=== PATIENT | male | born 1995 | race Caucasian/White ===

== ENCOUNTER 2018-05-15 13:14 | Emergency (ER) | payer OTHER ==
[2018-05-15] MEDS ORDERED: ONDANSETRON 4 MG (ODT) TAB ONE (13:56)
--- NOTE | 2018-05-15 14:12 | ER ---
Nurse's Notes [facility] Name: Silverio Alfaro Age: 23 yrs Sex: Male : 1995 Arrival Date: 05/15/2018 Time: 13:18 Bed 25 Private MD: None, None Diagnosis: Nausea and vomiting;Diarrhea, unspecified Presentation: 05/15 13:28 Presenting complaint: Patient states: n/v/d x 3 days. Transition of care: patient was sv not received from another setting of care. Onset of symptoms was May 12, 2018. Care prior to arrival: None. 13:28 Method Of Arrival: Ambulatory sv 13:28 Acuity: SAAD 3 sv 14:32 Risk Assessment: Do you want to hurt yourself or someone else? Patient reports no aj desire to harm self or others. Initial Sepsis Screen: Does the patient meet any 2 criteria? No. Patient's initial sepsis screen is negative. Does the patient have a suspected source of infection? No. Patient's initial sepsis screen is negative. Triage Assessment: 13:29 General: Appears in no apparent distress. comfortable, Behavior is calm, cooperative, sv appropriate for age. Neuro: Level of Consciousness is awake, alert, obeys commands, Oriented to person, place, time, situation, Gait is steady. Respiratory: Respiratory effort is even, unlabored, Respiratory pattern is regular, symmetrical. GI: Reports diarrhea, nausea, vomiting. Historical: - Allergies: 13:29 No Known Allergies; sv - PMHx: 13:29 None; sv - PSHx: 13:29 titanium plate placed in Left foot after previous foot fracture; sv - Immunization history:: Adult Immunizations up to date. - Social history:: Smoking status: Patient uses tobacco products, denies chronic smoking, but will smoke occasionally. - Ebola Screening: : No symptoms or risks identified at this time. Screenin:47 Abuse screen: Denies threats or abuse. Denies injuries from another. Nutritional aj screening: No deficits noted. Tuberculosis screening: No symptoms or risk factors identified. Fall Risk None identified. Assessment: 13:47 General: Appears in no apparent distress. comfortable, Behavior is calm, cooperative, aj appropriate for age. Pain: Denies pain. Neuro: Level of Consciousness is awake, alert, obeys commands, Oriented to person, place, time, situation, Appropriate for age. Respiratory: Airway is patent Respiratory effort is even, unlabored, Respiratory pattern is regular, symmetrical. GI: Reports diarrhea, nausea, vomiting. GI: Abdomen is flat, non-distended. Derm: Skin is intact, is healthy with good turgor, Skin is pink, warm \T\ dry. normal. Vital Signs: 13:29 BP 133 / 68; Pulse 69; Resp 18; Temp 97.4; Pulse Ox 100% ; Weight 117.93 kg; Height 6 sv ft. 3 in. (190.50 cm); Pain 6/10; 14:31 BP 134 / 61; Pulse 68; Resp 17; Pulse Ox 99% on R/A; aj 13:29 Body Mass Index 32.50 (117.93 kg, 190.50 cm) sv ED Course: 13:18 Patient arrived in ED. dl4 13:18 None, None is Private Physician. dl4 13:28 Triage completed. sv 13:29 Arm band placed on. sv 13:30 Lucy Humphrey FNP-C is [facility]. kb 13:30 Torin Garcia MD is Attending Physician. kb 13:39 Mena Lee, RN is Primary Nurse. aj 13:47 Patient has correct armband on for positive identification. Bed in low position. aj 13:47 No provider procedures requiring assistance completed. Patient did not have IV access aj during this emergency room visit. Administered Medications: 13:47 Drug: Zofran 4 mg Route: PO; aj 13:59 Follow up: Response: Nausea is decreased aj Outcome: 14:11 Discharge ordered by MD. kb 14:31 Discharged to home ambulatory. aj 14:31 Condition: good 14:31 Discharge instructions given to patient, Instructed on discharge instructions, follow up and referral plans. medication usage, Demonstrated understanding of instructions, follow-up care, medications, Prescriptions given X 1. 14:32 Patient left the ED. aj Signatures: Lucy Humphrey FNP-C FNP-Ckb Verde, Stephanie, RN RN sv Myers, Amanda, RN RN aj Luna, David dl4 Corrections: (The following items were deleted from the chart) 13:30 13:29 Pulse 69bpm; Resp 18bpm; Pulse Ox 100%; Temp 97.4F; 117.93 kg; Height 6 ft. 3 sv in.; BMI: 32.5; Pain 6/10; sv
--- NOTE | 2018-05-15 14:12 | EDPHYS ---
Physician Documentation [facility] Name: Silverio Alfaro Age: 23 yrs Sex: Male : 1995 Arrival Date: 05/15/2018 Time: 13:18 Bed 25 Private MD: None, None ED Physician Torin Garcia HPI: 05/15 14:08 This 23 yrs old Male presents to ER via Ambulatory with complaints of kb Nausea/Vomiting/Diarrhea. 14:08 The patient presents to the emergency department with nausea, vomiting, diarrhea. kb Onset: The symptoms/episode began/occurred 3 day(s) ago. Possible causes: unknown. The symptoms are aggravated by nothing. The symptoms are alleviated by nothing. Associated signs and symptoms: Pertinent positives: diarrhea, nausea, vomiting, Pertinent negatives: abdominal pain, anorexia, belching, constipation, dysuria, fever, flatulence, GI bleeding, hematuria. Severity of symptoms: At their worst the symptoms were moderate in the emergency department the symptoms are unchanged. The patient has not experienced similar symptoms in the past. The patient has not recently seen a physician. Pt reports n/v/d for 3 days. States "It's no big deal, nothing serious. I just threw up at work today so they made me come in to get checked out." . Historical: - Allergies: 13:29 No Known Allergies; sv - PMHx: 13:29 None; sv - PSHx: 13:29 titanium plate placed in Left foot after previous foot fracture; sv - Immunization history:: Adult Immunizations up to date. - Social history:: Smoking status: Patient uses tobacco products, denies chronic smoking, but will smoke occasionally. - Ebola Screening: : No symptoms or risks identified at this time. ROS: 14:10 Constitutional: Negative for fever, chills, and weight loss, Cardiovascular: Negative kb for chest pain, palpitations, and edema, Respiratory: Negative for shortness of breath, cough, wheezing, and pleuritic chest pain, Back: Negative for injury and pain, : Negative for injury, bleeding, discharge, and swelling, MS/Extremity: Negative for injury and deformity, Skin: Negative for injury, rash, and discoloration, Neuro: Negative for headache, weakness, numbness, tingling, and seizure. 14:10 Abdomen/GI: Positive for nausea, vomiting, and diarrhea, Negative for abdominal pain, constipation, abdominal cramps, abdominal distension, anorexia. Exam: 14:10 Constitutional: This is a well developed, well nourished patient who is awake, alert, kb and in no acute distress. Head/Face: Normocephalic, atraumatic. Chest/axilla: Normal chest wall appearance and motion. Nontender with no deformity. No lesions are appreciated. Cardiovascular: Regular rate and rhythm with a normal S1 and S2. No gallops, murmurs, or rubs. Normal PMI, no JVD. No pulse deficits. Respiratory: Lungs have equal breath sounds bilaterally, clear to auscultation and percussion. No rales, rhonchi or wheezes noted. No increased work of breathing, no retractions or nasal flaring. Abdomen/GI: Soft, non-tender, with normal bowel sounds. No distension or tympany. No guarding or rebound. No evidence of tenderness throughout. Skin: Warm, dry with normal turgor. Normal color with no rashes, no lesions, and no evidence of cellulitis. MS/ Extremity: Pulses equal, no cyanosis. Neurovascular intact. Full, normal range of motion. Neuro: Awake and alert, GCS 15, oriented to person, place, time, and situation. Cranial nerves II-XII grossly intact. Motor strength 5/5 in all extremities. Sensory grossly intact. Cerebellar exam normal. Normal gait. Vital Signs: 13:29 BP 133 / 68; Pulse 69; Resp 18; Temp 97.4; Pulse Ox 100% ; Weight 117.93 kg; Height 6 sv ft. 3 in. (190.50 cm); Pain 6/10; 14:31 BP 134 / 61; Pulse 68; Resp 17; Pulse Ox 99% on R/A; aj 13:29 Body Mass Index 32.50 (117.93 kg, 190.50 cm) sv MDM: 13:31 Patient medically screened. kb 14:07 Data reviewed: vital signs, nurses notes. Data interpreted: Pulse oximetry: on room air kb is 100 %. Interpretation: normal. Counseling: I had a detailed discussion with the patient and/or guardian regarding: the historical points, exam findings, and any diagnostic results supporting the discharge/admit diagnosis, the need for outpatient follow up, a family practitioner, to return to the emergency department if symptoms worsen or persist or if there are any questions or concerns that arise at home. 14:10 ED course: Pt does not want blood work done, doesn't think it is necessary. kb 05/15 13:36 Order name: PO challenge; Complete Time: 13:59 kb Administered Medications: 13:47 Drug: Zofran 4 mg Route: PO; aj 13:59 Follow up: Response: Nausea is decreased aj Disposition: 15:19 Co-signature as Attending Physician, Torin Garcia MD I agree with the assessment and [facility] plan of care. Disposition: 05/15/18 14:11 Discharged to Home. Impression: Nausea and vomiting, Diarrhea, unspecified. - Condition is Stable. - Discharge Instructions: Food Choices to Help Relieve Diarrhea, Adult, Viral Gastroenteritis, Adult, [id number], Nausea and Vomiting, Adult, [id number], Diarrhea, Adult, [id number]. - Prescriptions for Zofran 4 mg Oral Tablet - take 1 tablet by ORAL route every 6 hours As needed; 20 tablet. - Medication Reconciliation Form, Thank You Letter, Antibiotic Education, Prescription Opioid Use form. - Work release form (05/15/18 16:08). sv - Follow up: Emergency Department; When: As needed; Reason: Worsening of condition. Follow up: Private Physician; When: 2 - 3 days; Reason: Recheck today's complaints, Continuance of care, Re-evaluation by your physician. Signatures: Lucy Humphrey, JORGE-C INSEAMER-Dory Madrid RN RN sv Myers, Amanda, RN RN aj Anderson, Corey, MD MD [facility] Corrections: (The following items were deleted from the chart) 14:32 14:11 05/15/2018 14:11 Discharged to Home. Impression: Nausea and vomiting; Diarrhea, aj unspecified. Condition is Stable. Forms are Medication Reconciliation Form, Thank You Letter, Antibiotic Education, Prescription Opioid Use. Follow up: Emergency Department; When: As needed; Reason: Worsening of condition. Follow up: Private Physician; When: 2 - 3 days; Reason: Recheck today's complaints, Continuance of care, Re-evaluation by your physician. kb
== END 2018-05-15 14:32 | disposition home or self-care (01) ==
LOC: ER 13:14
DX: R11.2 Nausea with vomiting, unspecified (principal); R19.7 Diarrhea, unspecified
CPT/HCPCS: 99283

== ENCOUNTER 2020-09-17 03:11 | Emergency (ER) | payer BC, OTHER ==
[2020-09-17 03:42] LABS: Urine Blood Negative (Negative); Urine Glucose Negative (Negative); Urine Protein Negative (Negative); Urine Specific Gravity 1.025 (1.005-1.030); Urine pH 5.5 (5.0-7.0)
[2020-09-17 04:07] LABS: Absolute Lymphocytes (CBC) 2.1 K/uL (0.7-4.9); Basophils % 0.2 % (0-1.3); Hematocrit 44.6 % (39.6-49.0); Lymphocytes % 16.6 % (15.3-44.8); MPV 10.4 fL (7.6-11.3); RBC Red Blood Cell Count 5.11 M/uL (4.33-5.43)
[2020-09-17 04:10] LABS: Protime INR 1.14
[2020-09-17] MEDS ORDERED: NA CHLORIDE 0.9% 1,000 ML ONE (04:10)
[2020-09-17 04:29] LABS: Barbiturates NEGATIVE (NEGATIVE); Benzodiazepines NEGATIVE (NEGATIVE); Cocaine NEGATIVE (NEGATIVE); METHAMPHETAM NEGATIVE (NEGATIVE); Methadone NEGATIVE (NEGATIVE); Opiates NEGATIVE (NEGATIVE); Phencyclidine NEGATIVE (NEGATIVE); THC Cannibis POSITIVE (NEGATIVE)
[2020-09-17 04:29] LABS: ALT/SGPT 30 U/L (12-78); AST/SGOT 23 U/L (15-37); Albumin 4.5 g/dL (3.4-5.0); Alkaline Phosphatase 72 U/L (45-117); BUN Blood Urea Nitrogen 14 mg/dL (7-18); Bicarbonate 26 mmol/L (21-32); Bilirubin Direct 0.1 mg/dL (0-0.2); Bilirubin Total 0.4 mg/dL (0.2-1.0); Glucose Level 98 mg/dL (74-106); Potassium 3.5 mmol/L (3.5-5.1); Protein, Total 8.1 g/dL (6.4-8.2); Sodium Level 143 mmol/L (136-145)
[2020-09-17] MEDS ORDERED: D50W 25 GM/50 ML SYRINGE IV ONE (05:45)
[2020-09-17] MEDS ORDERED: D5 0.45 NS 1,000 ML IV ONE (05:45)
--- NOTE | 2020-09-17 06:56 | ER ---
Nurse's Notes [facility] Name: Silverio Alfaro Age: 25 yrs Sex: Male : 1995 Arrival Date: 09/17/2020 Time: 03:12 Bed 3 Private MD: Diagnosis: Alcohol abuse with intoxication;Adverse effect of marijuana use Presentation: 09/17 03:15 Chief complaint: Parent and/or Guardian states: He was at a friends house tonight jb4 drinking. They said he had a lot to drink on an empty stomach. Coronavirus screen: Client denies travel out of the [place] in the last 14 days. At this time, the client does not indicate any symptoms associated with coronavirus-19. Ebola Screen: No symptoms or risks identified at this time. 03:15 Method Of Arrival: Wheelchair jb4 03:15 Initial Sepsis Screen: Does the patient meet any 2 criteria? No. Patient's initial jb4 sepsis screen is negative. Does the patient have a suspected source of infection? No. Patient's initial sepsis screen is negative. Risk Assessment: Do you want to hurt yourself or someone else? Patient reports no desire to harm self or others. Onset of symptoms was September 17, 2020. Transition of care: patient was not received from another setting of care. 03:15 Acuity: SAAD 1 jb4 Historical: - Allergies: 03:40 No Known Allergies; jb4 - Home Meds: 03:40 None [Active]; jb4 - PMHx: 03:40 None; jb4 - PSHx: 03:40 None; jb4 - Immunization history:: Adult Immunizations unknown. - Social history:: Smoking status: unknown Patient uses alcohol, street drugs, marijuana. - Family history:: not pertinent. - Hospitalizations: : No recent hospitalization is reported. - History obtained from: mother. Screenin:30 Abuse screen: Denies threats or abuse. Nutritional screening: No deficits noted. jb4 Tuberculosis screening: No symptoms or risk factors identified. Fall Risk Gait- Impaired (20 pts.). Mental Status- Overestimates/Forgets Limitations (15 pts.). Total Christiansen Fall Scale indicates High Risk Score (45 or more points). Fall prevention measures have been instituted. Side Rails Up X 2 Placed Close to Nursing Station Frequent Obs/Assessments Occuring. Assessment: 03:15 General: Appears distressed, ill, obese, Behavior is uncooperative, Smells of alcohol, jb4 Smoke. Pain: Unable to use pain scale. FLACC scale score is 0 out of 10. Neuro: Level of Consciousness is lethargic, Oriented to person, place, time, situation. Cardiovascular: Skin is diaphoretic and warm. Respiratory: Airway is compromised Respiratory effort is gasping, weak, Respiratory pattern is symmetrical, periods of apnea noted with periods of regular breathing. GI: No signs and/or symptoms were reported involving the gastrointestinal system. : No signs and/or symptoms were reported regarding the genitourinary system. EENT: No signs and/or symptoms were reported regarding the EENT system. Derm: Skin is intact, Skin is diaphoretic, Skin is normal, Skin temperature is warm. Musculoskeletal: Circulation, motion, and sensation intact. Range of motion: intact in all extremities. 03:30 Reassessment: Nasal trumpet inserted to left nare per providers orders. jb4 03:45 Reassessment: Pt's skin is now warm and dry. Respirations are even and unlabored. No jb4 s/s of distress noted. 04:45 Reassessment: Patient and/or family updated on plan of care and expected duration. Pain jb4 level reassessed. Pt awakens more easily, remain lethargic. Respirations continue to be even and unlabored with no s/s of pain or distress noted. 05:15 Reassessment: Pt is now awake, alert and oriented x4. Responds spontaneously to voice jb4 and other sounds. Is requesting to have nasal trumpet removed. Provider notified, Provider okayed nasal trumpet to be removed. 07:20 Reassessment: pt laying in bed with eyes closed, respirations even and unlabored, will jl7 be discharged once his mom arrives. 08:00 Reassessment: Pt's mom here to take pt home, woke pt up, removed Hdz and discharged jl7 pt home via wheelchair with his mom. Vital Signs: 03:15 BP 112 / 58; Pulse 60; Resp 13; Temp 96.7(O); Pulse Ox 98% on R/A; Weight 117.93 kg jb4 (R); Height 6 ft. 1 in. (185.42 cm); Pain 0/10; 05:00 BP 154 / 97; Pulse 58; Resp 19; Temp 98.5(C); Pulse Ox 100% on R/A; jb4 05:30 BP 153 / 99; Pulse 63; Resp 23; Temp 98.9(C); Pulse Ox 100% on R/A; jb4 07:20 BP 135 / 58; Pulse 69; Resp 19 S; Temp 99.1(C); Pulse Ox 98% on R/A; jl7 08:00 BP 137 / 76; Pulse 73; Resp 15 S; Temp 98.9(C); Pulse Ox 99% on R/A; jl7 03:15 Body Mass Index 34.30 (117.93 kg, 185.42 cm) jb4 ED Course: 03:12 Patient arrived in ED. am4 03:13 Rosalio Leavitt MD is Attending Physician. rn 03:15 Initial lab(s) drawn, by me, sent to lab. Inserted saline lock: 18 gauge in right jb4 antecubital area, using aseptic technique. Blood collected. 03:25 EKG done. jb4 03:30 Patient has correct armband on for positive identification. Placed in gown. Bed in low jb4 position. Call light in reach. Side rails up X 1. metal sorter on. Pulse ox on. NIBP on. 03:30 Hdz cath inserted, using sterile technique, 16 Fr., by ne, balloon inflated, to jb4 gravity drainage, urine specimen collected. returned mana urine. Patient tolerated well. Patient maintains SpO2 saturation greater than 95% on room air. O2 via Nasal trumpet inserted per Dr. Laevitt. 03:39 Triage completed. jb4 03:40 Arm band placed on right wrist. jb4 03:48 Grant Berry, RN is Primary Nurse. jb4 07:37 Primary Nurse role handed off by Grant Berry, RN bd 08:00 No provider procedures requiring assistance completed. Hdz cath removed intact, jl7 balloon deflated. IV discontinued, intact, bleeding controlled, No redness/swelling at site. Pressure dressing applied. Administered Medications: 04:14 Drug: NS 0.9% 1000 ml Route: IV; Rate: 1000 ml; Site: left antecubital; jb4 07:00 Follow up: IV Intake: 1000ml jl7 05:30 Drug: D5-1/2 NS 1000 ml Route: IV; Rate: 150 ml/hr; Site: left antecubital; jb4 08:00 Follow up: IV Status: Completed infusion; IV Intake: 350ml jl7 05:30 Drug: D50W 50 ml Route: IVP; Site: left antecubital; jb4 Intake: 07:00 IV: 1000ml; Total: 1000ml. jl7 08:00 IV: 350ml; Total: 1350ml. jl7 Outcome: 06:55 Discharge ordered by . rn 08:00 Discharged to home via wheelchair, with family. jl7 08:00 Condition: stable 08:00 Discharge instructions given to patient, Instructed on discharge instructions, follow up and referral plans. Demonstrated understanding of instructions, follow-up care. 09:42 Patient left the ED. jl7 Signatures: Madhavi Mcdonald Brenda, RN RN Rosalio Stearns MD MD rn Bryson, James, RN RN jb4 Gene Pyle RN RN Ayse Bowman am4 Corrections: (The following items were deleted from the chart) 03:18 03:18 Chief complaint: bb radha 05:05 03:15 BP 112 / 58; Pulse 60bpm; Resp 13bpm; Pulse Ox 98% RA; Temp 96.7F Oral; jb4 jb4
--- NOTE | 2020-09-17 06:56 | EDPHYS ---
Physician Documentation [facility] Name: Silverio Alfaro Age: 25 yrs Sex: Male : 1995 Arrival Date: 09/17/2020 Time: 03:12 Bed 3 Private MD: ED Physician Rosalio Leavitt HPI: 09/17 05:11 This 25 yrs old Male presents to ER via Wheelchair with complaints of rn Unresponsive. 05:11 The patient presents with decreased responsiveness. Onset: The symptoms/episode rn began/occurred just prior to arrival. Possible causes: drug use, alcohol. Associated signs and symptoms: Pertinent negatives: seizure. Current symptoms: In the emergency department the patient's symptoms are unchanged from the initial presentation. The patient has not experienced similar symptoms in the past. The patient has not recently seen a physician. Mother brought patient in for eval, states unresponsive, was at a house libertarian and admitted to drinking a lot. Unknown if any drug use.. Historical: - Allergies: 03:40 No Known Allergies; jb4 - Home Meds: 03:40 None [Active]; jb4 - PMHx: 03:40 None; jb4 - PSHx: 03:40 None; jb4 - Immunization history:: Adult Immunizations unknown. - Social history:: Smoking status: unknown Patient uses alcohol, street drugs, marijuana. - Family history:: not pertinent. - Hospitalizations: : No recent hospitalization is reported. - History obtained from: mother. ROS: 05:11 Unable to obtain ROS due to altered mental status. rn Exam: 05:11 Constitutional: This is a well developed, well nourished patient who is somnolent, rn drooling Head/Face: Normocephalic, atraumatic. Eyes: Pupils equal round and reactive to light, extra-ocular motions intact. Periorbital areas with no swelling, redness, or edema. ENT: dry MM, no signs of tongue biting or trauma. Cardiovascular: Regular rate and rhythm. No pulse deficits. Respiratory: No increased work of breathing, no retractions or nasal flaring. Abdomen/GI: soft, non-tender Skin: Warm, dry MS/ Extremity: Pulses equal, no cyanosis. Neuro: Somnolent, awakens with jaw thrust Vital Signs: 03:15 BP 112 / 58; Pulse 60; Resp 13; Temp 96.7(O); Pulse Ox 98% on R/A; Weight 117.93 kg jb4 (R); Height 6 ft. 1 in. (185.42 cm); Pain 0/10; 05:00 BP 154 / 97; Pulse 58; Resp 19; Temp 98.5(C); Pulse Ox 100% on R/A; jb4 05:30 BP 153 / 99; Pulse 63; Resp 23; Temp 98.9(C); Pulse Ox 100% on R/A; jb4 07:20 BP 135 / 58; Pulse 69; Resp 19 S; Temp 99.1(C); Pulse Ox 98% on R/A; jl7 08:00 BP 137 / 76; Pulse 73; Resp 15 S; Temp 98.9(C); Pulse Ox 99% on R/A; jl7 03:15 Body Mass Index 34.30 (117.93 kg, 185.42 cm) jb4 MDM: 03:13 Patient medically screened. rn 06:53 Differential Diagnosis: alcohol intoxication, hypoglycemia, overdose, volume depletion. rn Data reviewed: vital signs, nurses notes, lab test result(s), and as a result, I will discharge patient. Counseling: I had a detailed discussion with the patient and/or guardian regarding: the historical points, exam findings, and any diagnostic results supporting the discharge/admit diagnosis, lab results, the need for outpatient follow up, to return to the emergency department if symptoms worsen or persist or if there are any questions or concerns that arise at home. Response to treatment: the patient's symptoms have markedly improved after treatment, and as a result, I will discharge patient. ED course: Much more alert, awakens to voice now, sits up, keeps full conversation, stable vitals. Will dc home when mother comes back to take him home and continue to sober up. Counseled patient about drug use and ETOH intoxication and dangers of both.. 09/17 03:14 Order name: Ptt, Activated; Complete Time: 04:39 rn 09/17 03:14 Order name: PT-INR; Complete Time: 04:39 rn 09/17 03:14 Order name: Acetaminophen; Complete Time: 04:39 rn 09/17 03:14 Order name: Basic Metabolic Panel; Complete Time: 04:39 rn 06/02 03:14 Order name: CBC with Diff; Complete Time: 04:39 rn 09/17 03:14 Order name: ETOH Level; Complete Time: 04:39 rn 09/17 03:14 Order name: Hepatic Function; Complete Time: 04:39 rn 09/17 03:14 Order name: Salicylate; Complete Time: 04:39 rn 09/17 03:14 Order name: Urine Drug Screen; Complete Time: 04:39 rn 02 03:33 Order name: Glucose, Ancillary Testing; Complete Time: 04:39 EDMS 02 03:43 Order name: Urine Dipstick-Ancillary; Complete Time: 04:39 EDMS 09/17 05:34 Order name: Glucose, Ancillary Testing; Complete Time: 05:36 EDMS 09/17 03:14 Order name: EKG; Complete Time: 03:15 rn 09/17 03:14 Order name: EKG - Nurse/Tech; Complete Time: 03:36 rn 09/17 03:14 Order name: IV Saline Lock; Complete Time: 03:36 rn 09/17 03:14 Order name: Labs collected and sent; Complete Time: 03:36 rn 09/17 03:14 Order name: Urine Dipstick-Ancillary (obtain specimen); Complete Time: 03:36 rn 09/17 03:14 Order name: Cath; Complete Time: 03:36 rn Administered Medications: 04:14 Drug: NS 0.9% 1000 ml Route: IV; Rate: 1000 ml; Site: left antecubital; 4 07:00 Follow up: IV Intake: 1000ml jl7 05:30 Drug: D5-1/2 NS 1000 ml Route: IV; Rate: 150 ml/hr; Site: left antecubital; 4 08:00 Follow up: IV Status: Completed infusion; IV Intake: 350ml jl7 05:30 Drug: D50W 50 ml Route: IVP; Site: left antecubital; 4 Disposition: 09/17/20 06:55 Discharged to Home. Impression: Alcohol abuse with intoxication, Adverse effect of marijuana use. - Condition is Stable. - Discharge Instructions: Alcohol Intoxication. - Medication Reconciliation Form, Thank You Letter, Antibiotic Education, Prescription Opioid Use form. - Work release form (09/18/20 00:48). iw - Follow up: Private Physician; When: As needed; Reason: Recheck today's complaints, Re-evaluation by your physician. - Problem is new. - Symptoms have improved. Signatures: Dispatcher [employer] EDMS Rosalio Leavitt MD MD rn Bryson, James, RN RN jb4 Gene Pyle RN RN jl7 Winifred Esteban RN iw Corrections: (The following items were deleted from the chart) 09:42 06:55 09/17/2020 06:55 Discharged to Home. Impression: Alcohol abuse with intoxication; jl7 Adverse effect of marijuana use. Condition is Stable. Forms are Medication Reconciliation Form, Thank You Letter, Antibiotic Education, Prescription Opioid Use. Follow up: Private Physician; When: As needed; Reason: Recheck today's complaints, Re-evaluation by your physician. Problem is new. Symptoms have improved. rn
[2020-09-17 09:57] VITALS: BP 137/76; TEMP 98.9; O2SAT 99
--- NOTE | 2020-09-17 11:54 | EKG ---
Test Date: 2020-09-17 Test Time: 03:23:17 Associate Financial Representative: AYAKA MEASUREMENT RESULTS: Intervals: Rate: 62 NJ: 164 QRSD: 100 QT: 428 QTc: 434 Bodega: P: 48 NJ: 164 QRS: 49 T: 67 INTERPRETIVE STATEMENTS: Normal sinus rhythm Normal ECG No previous ECG available for comparison Electronically Signed On 09-17-20 11:53:30 CDT by Ilir Barnes
== END 2020-09-17 09:42 | disposition home or self-care (01) ==
LOC: ER 03:11
DX: F10.129 Alcohol abuse with intoxication, unspecified (principal); T40.7X5A Adverse effect of cannabis (derivatives), initial encounter
CPT/HCPCS: 96361; 93005; 85025; 80048; 36415; 80320; 80329 ×2; 85610; 82947 ×2; 80076; 80307 ×8; 85730; 81003; 51702; 96374; 99291; 99292; J7799; J7030

== ENCOUNTER 2021-11-10 20:49 | Emergency (ER) | payer BC ==
--- NOTE | 2021-11-11 01:14 | ER ---
Nurse's Notes [facility] Name: Silverio Alfaro Age: 26 yrs Sex: Male : 1995 Arrival Date: 11/10/2021 Time: 20:57 Bed 11 Private MD: Diagnosis: Viral infection, unspecified;Nausea with vomiting, unspecified-Resolved Presentation: 11/10 21:03 Chief complaint: N/V/D yesterday after lunch, sore throat and headache today. hb Coronavirus screen: Client presents with at least one sign or symptom that may indicate coronavirus-19. Standard/surgical mask placed on the client. Provider contacted for isolation considerations. Ebola Screen: No symptoms or risks identified at this time. Initial Sepsis Screen: Does the patient meet any 2 criteria? No. Patient's initial sepsis screen is negative. Does the patient have a suspected source of infection? No. Patient's initial sepsis screen is negative. Risk Assessment: Do you want to hurt yourself or someone else? Patient reports no desire to harm self or others. Onset of symptoms was November 09, 2021. 21:03 Method Of Arrival: Ambulatory 21:03 Acuity: SAAD 3 hb Triage Assessment: 21:05 General: Appears in no apparent distress. Behavior is calm, cooperative. Pain: Pain hb currently is 4 out of 10 on a pain scale. Neuro: Level of Consciousness is awake, alert, obeys commands, Oriented to person, place, time, situation. Cardiovascular: Patient's skin is warm and dry. Respiratory: Respiratory effort is even, unlabored. Historical: - Allergies: 21:05 No Known Allergies; hb - Home Meds: 21:05 None [Active]; hb - PMHx: 21:05 None; hb - PSHx: 21:05 Foot - Left; Hip - left; hb - Immunization history:: Adult Immunizations up to date. - Social history:: Smoking status: Patient reports the use of cigarette tobacco products, denies chronic smoking, but will smoke occasionally. Screenin:27 Abuse screen: Denies threats or abuse. Nutritional screening: No deficits noted. [facility] Tuberculosis screening: No symptoms or risk factors identified. Fall Risk None identified. Assessment: 23:27 Reassessment: No changes from previously documented assessment. GI: Reports nausea. [facility] Vital Signs: 21:03 BP 135 / 65; Pulse 63; Resp 16; Temp 98.9; Pulse Ox 100% on R/A; Weight 108.86 kg; hb Height 6 ft. 3 in. (190.50 cm); Pain 4/10; 23:40 BP 112 / 71; Pulse 46; Resp 20; Pulse Ox 100% on R/A; 1 11/11 01:20 BP 122 / 76; Pulse 46; Resp 20; Pulse Ox 100% on R/A; 1 11/10 21:03 Body Mass Index 30.00 (108.86 kg, 190.50 cm) hb ED Course: 11/10 20:57 Patient arrived in ED. 2 21:05 Triage completed. 21:05 Arm band placed on. 23:14 Gwen Carr, RN is Primary Nurse. [facility] 23:27 Primary Nurse role handed off by Gwen Carr, K[facility] 23:27 Madhavi Milligan, RN is Primary Nurse. [facility] 23:27 Patient has correct armband on for positive identification. [facility] 23:27 No provider procedures requiring assistance completed. Patient did not have IV access [facility] during this emergency room visit. 23:37 Terrance Guardado MD is Attending Physician. kdr 23:40 No apparent distress. Resting quietly. Awaiting ED provider evaluation. [facility] 11/11 00:24 No apparent distress. Resting quietly. Awaiting disposition. [facility] Administered Medications: No medications were administered Medication: 11/10 23:27 VIS not applicable for this client. [facility] Outcome: 11/11 01:13 Discharge ordered by . kdr 01:20 Discharged to home ambulatory. [facility] 01:20 Condition: good 01:20 Discharge instructions given to patient, Instructed on discharge instructions, follow up and referral plans. medication usage, Demonstrated understanding of instructions, follow-up care, medications. 01:20 Patient left the ED. [facility] Signatures: Terrance Guardado MD MD kdr Baxter, Heather, RN RN Glenys Block [facility] Gwen Carr RN RN 3 Madhavi Milligan RN RN [facility]
--- NOTE | 2021-11-11 01:14 | EDPHYS ---
Physician Documentation [facility] Name: Silverio Alfaro Age: 26 yrs Sex: Male : 1995 Arrival Date: 11/10/2021 Time: 20:57 Bed 11 Private MD: ED Physician Terrance Guardado HPI: 11/11 02:50 This 26 yrs old Male presents to ER via Ambulatory with complaints of kdr Nausea/Vomiting. 02:50 The patient presents to the emergency department with nausea, that is mild, vomiting, kdr that is intermittent, abdominal pain, of the abdomen diffusely, described as achy, crampy. Onset: The symptoms/episode began/occurred suddenly, last night. Possible causes: unknown. The symptoms are aggravated by nothing. The symptoms are alleviated by nothing. Associated signs and symptoms: Pertinent positives: abdominal pain, nausea, vomiting. Severity of symptoms: At their worst the symptoms were mild moderate just prior to arrival, in the emergency department the symptoms have resolved. The patient has not experienced similar symptoms in the past. The patient has not recently seen a physician. Sent by his workplace for medical clearance and evaluation. Historical: - Allergies: 11/10 21:05 No Known Allergies; hb - Home Meds: 21:05 None [Active]; hb - PMHx: 21:05 None; hb - PSHx: 21:05 Foot - Left; Hip - left; hb - Immunization history:: Adult Immunizations up to date. - Social history:: Smoking status: Patient reports the use of cigarette tobacco products, denies chronic smoking, but will smoke occasionally. ROS: 11/11 02:50 Constitutional: Negative for fever, chills, and weight loss, Eyes: Negative for injury, kdr pain, redness, and discharge, ENT: Negative for injury, pain, and discharge, Neck: Negative for injury, pain, and swelling, Cardiovascular: Negative for chest pain, palpitations, and edema, Respiratory: Negative for shortness of breath, cough, wheezing, and pleuritic chest pain, Back: Negative for injury and pain, : Negative for injury, bleeding, discharge, and swelling, MS/Extremity: Negative for injury and deformity, Skin: Negative for injury, rash, and discoloration, Neuro: Negative for headache, weakness, numbness, tingling, and seizure activity. Psych: Negative for depression, anxiety, suicide ideation, homicidal ideation, and hallucinations, Allergy/Immunology: Negative for hives, rash, and allergies, Endocrine: Negative for neck swelling, polydipsia, polyuria, polyphagia, and marked weight changes, Hematologic/Lymphatic: Negative for swollen nodes, abnormal bleeding, and unusual bruising. Abdomen/GI: Positive for abdominal pain, nausea, vomiting, and diarrhea, abdominal cramps. Exam: 02:50 Constitutional: This is a well developed, well nourished patient who is awake, alert, kdr and in no acute distress. Head/Face: Normocephalic, atraumatic. Eyes: Pupils equal round and reactive to light, extra-ocular motions intact. Lids and lashes normal. Conjunctiva and sclera are non-icteric and not injected. Cornea within normal limits. Periorbital areas with no swelling, redness, or edema. Neck: Trachea midline, no thyromegaly or masses palpated, and no cervical lymphadenopathy. Supple, full range of motion without nuchal rigidity, or vertebral point tenderness. No Meningismus. Chest/axilla: Normal chest wall appearance and motion. Nontender with no deformity. No lesions are appreciated. Cardiovascular: Regular rate and rhythm with a normal S1 and S2. No gallops, murmurs, or rubs. Normal PMI, no JVD. No pulse deficits. Respiratory: Lungs have equal breath sounds bilaterally, clear to auscultation and percussion. No rales, rhonchi or wheezes noted. No increased work of breathing, no retractions or nasal flaring. Abdomen/GI: Soft, non-tender, with normal bowel sounds. No distension or tympany. No guarding or rebound. No evidence of tenderness throughout. Back: No spinal tenderness. No costovertebral tenderness. Full range of motion. Skin: Warm, dry with normal turgor. Normal color with no rashes, no lesions, and no evidence of cellulitis. MS/ Extremity: Pulses equal, no cyanosis. Neurovascular intact. Full, normal range of motion. Neuro: Awake and alert, GCS 15, oriented to person, place, time, and situation. Cranial nerves II-XII grossly intact. Motor strength 5/5 in all extremities. Sensory grossly intact. Cerebellar exam normal. Normal gait. Psych: Awake, alert, with orientation to person, place and time. Behavior, mood, and affect are within normal limits. Vital Signs: 11/10 21:03 BP 135 / 65; Pulse 63; Resp 16; Temp 98.9; Pulse Ox 100% on R/A; Weight 108.86 kg; hb Height 6 ft. 3 in. (190.50 cm); Pain 4/10; 23:40 BP 112 / 71; Pulse 46; Resp 20; Pulse Ox 100% on R/A; 1 11/11 01:20 BP 122 / 76; Pulse 46; Resp 20; Pulse Ox 100% on R/A; 1 11/10 21:03 Body Mass Index 30.00 (108.86 kg, 190.50 cm) hb MDM: 01:13 Patient medically screened. kdr 02:50 Data reviewed: vital signs, nurses notes, lab test result(s), radiologic studies. kdr Counseling: I had a detailed discussion with the patient and/or guardian regarding: the historical points, exam findings, and any diagnostic results supporting the discharge/admit diagnosis, lab results, radiology results, the need for outpatient follow up. 11/10 21:08 Order name: Flu; Complete Time: 00:12 hb 11/10 21:08 Order name: COVID-19 SARS RT PCR (Document "Date of Onset" if Symptomatic); Complete hb Time: 00:12 11/11 00:20 Order name: PO challenge; Complete Time: 00:25 kdr Administered Medications: No medications were administered Disposition Summary: 11/11/21 01:13 Discharge Ordered Location: Home kdr Problem: new kdr Symptoms: have improved kdr Condition: Stable kdr Diagnosis - Viral infection, unspecified kdr - Nausea with vomiting, unspecified - Resolved kdr Followup: kdr - With: Private Physician - When: 2 - 3 days - Reason: If symptoms return, Further diagnostic work-up, Recheck today's complaints, Continuance of care, Re-evaluation by your physician Discharge Instructions: - Discharge Summary Sheet kdr - Nausea, Adult, [id number] kdr - Vomiting, Adult kdr - Viral Illness, Adult kdr Forms: - Medication Reconciliation Form kdr - Thank You Letter kdr - [facility] Prescriptions: - Zofran 4 mg Oral Tablet - take 1 tablet by ORAL route every 12 hours As needed; 12 tablet; Refills: 0, kdr Product Selection Permitted Signatures: Dispatcher [employer] EDND Debby, Terrance, MD MD kdr Noemi Young, RN RN hb
[2021-11-11 01:34] VITALS: TEMP 98.9; O2SAT 100
[2021-11-11 01:35] VITALS: BP 112/71
== END 2021-11-11 01:20 | disposition home or self-care (01) ==
LOC: ER 20:49
DX: B34.9 Viral infection, unspecified (principal); Z20.822 Contact with and (suspected) exposure to COVID-19; F17.210 Nicotine dependence, cigarettes, uncomplicated
CPT/HCPCS: 87804 ×2; 99281; U0003